=== PATIENT | male | born 1995 | race Caucasian/White ===

== ENCOUNTER 2016-04-15 11:14 | Emergency (ER) | payer SELFPAY ==
[~2016-04-15] VITALS: Ht 180.3 cm; Wt 109.1 kg
[~2016-04-15 11:14] MED LIST: IBU800 M1 PO; NO HOME MEDICATIONS; NORCO 325 MG-51 TAB PO; NORCO 325 MG-7.1 TAB PO; OXYCONTIN 10MG10 MG PO; PERCOCET 325 MG1 TA2 PO; PHENERGAN W/CO120 M1 PO; PREDNISONE20 MG PO; PROAIR HFA0.09 MG/AC IH; ROXICODONE 55 MG/TAB PO; TYLENOL 500MG500 MG PO; ULTRAM 50MG TAB50 MG PO; ZOLOFT 25MG25 MG PO
[2016-04-15 11:20] VITALS: BP 152/84; PULSE 81; TEMP 98.6
[2016-04-15] MEDS ORDERED: NORCO 325 MG-7.1 TAB PO (11:48)
== END 2016-04-15 11:58 | disposition home or self-care (01) ==
LOC: COL.ER 11:14
DX: G89.18 Other acute postprocedural pain (principal); K08.89 Other specified disorders of teeth and supporting structures; K08.409 Partial loss of teeth, unspecified cause, unspecified class; F17.210 Nicotine dependence, cigarettes, uncomplicated

== ENCOUNTER 2016-05-09 13:42 | Emergency (ER) | payer SELFPAY ==
[~2016-05-09] VITALS: Ht 180.3 cm; Wt 113.6 kg
[2016-05-09 13:44] VITALS: TEMP 98.6
[2016-05-09] MEDS ORDERED: NORCO 325 MG-51 TAB PO (15:41)
[2016-05-09 15:46] VITALS: BP 132/92; PULSE 90
== END 2016-05-09 15:56 | disposition home or self-care (01) ==
LOC: COL.ER 13:42
DX: S86.811A Strain of other muscle(s) and tendon(s) at lower leg level, right leg, initial encounter (principal); X50.1XXA Overexertion from prolonged static or awkward postures, initial encounter; Y92.009 Unspecified place in unspecified non-institutional (private) residence as the place of occurrence of the external cause

== ENCOUNTER 2016-07-27 08:52 | Emergency (ER) | payer SELFPAY ==
[~2016-07-27] VITALS: Ht 180.3 cm; Wt 109.1 kg
[2016-07-27 09:02] VITALS: BP 132/88; TEMP 98.5
[2016-07-27] MEDS ORDERED: NORCO 325 MG-51 TAB PO (10:01)
[2016-07-27 10:11] VITALS: PULSE 89
== END 2016-07-27 10:12 | disposition home or self-care (01) ==
LOC: COL.ER 08:52
DX: S83.91XA Sprain of unspecified site of right knee, initial encounter (principal); X50.1XXA Overexertion from prolonged static or awkward postures, initial encounter; Y92.89 Other specified places as the place of occurrence of the external cause
CPT/HCPCS: L1830

== ENCOUNTER 2017-01-03 17:16 | Emergency (ER) | payer BC ==
[~2017-01-03] VITALS: Ht 177.8 cm; Wt 106.8 kg
[2017-01-03 17:25] VITALS: BP 134/80; TEMP 98.2
[2017-01-03] MEDS ORDERED: CEPHALEXIN500 M1 PO (18:44)
[2017-01-03 18:47] VITALS: PULSE 81
== END 2017-01-03 18:47 | disposition home or self-care (01) ==
LOC: COL.ER 17:16
DX: L03.113 Cellulitis of right upper limb (principal)

== ENCOUNTER → 2017-02-01 | Outpatient (REF) ==
[~2017-02-01] MED LIST changes: +CEPHALEXIN500 M1 PO
== END ==
LOC: ZLAB.WCH 08:49
DX: Z01.89 Encounter for other specified special examinations (principal)